=== PATIENT | male | born 1955 | race Caucasian/White ===

== ENCOUNTER 2022-11-24 09:08 | Emergency (ER) | payer MEDICARE, SELFPAY ==
[2022-11-24 09:11] VITALS: BP 117/66; PULSE 57; O2SAT 99
[2022-11-24 09:12] VITALS: BP 117/66; PULSE 60; RESP 18; TEMP 36.6; O2SAT 100; BMI 23.0
[2022-11-24 09:30] VITALS: PULSE 61; O2SAT 100
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
[2022-11-24 09:43] LABS: Add Manual Diff / Slide Review NO; Basophils Absolute Auto 0 /uL (0-100); Basophils Percent Auto 0.6 % (0-2); Eosinophils Absolute Auto 100 /uL (0-450); Eosinophils Percent Auto 1.7 % (2-4); Hemoglobin 14.2 g/dL (13.5-17.5); Lymphocytes Absolute Auto 1200 /uL (1100-4500); Lymphocytes Percent Auto 23.7 % (25-40); Mean Corpuscular HGB Conc 34.6 % (30-36); Mean Corpuscular Hemoglobin 32.1 PG (26-34); Mean Corpuscular Volume 92.7 fL (80-100); Monocytes Absolute Auto 400 /uL (0-900); Monocytes Percent Auto 8.2 % (3-14); Neutrophils Absolute Auto 3400 /uL (1500-7000); Neutrophils Percent Auto 65.8 % (50-75); Platelet Count 227 X10^3/uL (150-400); Red Blood Cell Count 4.42 X10^6/uL (4.5-5.9); Red Cell Distribution Width 13.1 % (11.6-14.8); White Blood Cell Count 5.1 X10^3/uL (4.5-11.0)
[2022-11-24 09:46] LABS: Prothrombin Time 11.4 SECONDS (10.1-12.7)
[2022-11-24 09:49] LABS: PTT Partial Thromboplastin Tim 24 SECONDS (26-36)
[2022-11-24] MEDS: cephALEXin 250 MG CAPSULE 500 MG PO (09:54)
[2022-11-24 10:00] VITALS: PULSE 63; O2SAT 99
[2022-11-24 10:23] VITALS: BP 122/76; PULSE 63; O2SAT 100
[2022-11-24 10:30] VITALS: PULSE 64; O2SAT 100
== END 2022-11-24 10:52 | disposition home or self-care (01) ==
PROVIDERS: Emergency Provider Emergency Medicine
DX: R04.0 Epistaxis (principal)
CPT/HCPCS: 30901; 85025; 85610; 85730; 99283

== ENCOUNTER 2022-11-25 11:37 | Emergency (ER) | payer MEDICARE, SELFPAY ==
[2022-11-25 11:39] VITALS: BP 137/90; PULSE 87; RESP 16; TEMP 36.6; O2SAT 98; BMI 23.0
--- NOTE | 2022-11-25 16:33 | ED_ITS ---
HPI - Recheck/Abnormal Lab/Rx <Rashmi Raymundo PA-C - Last Filed: 11/25/22 17:33> General Chief Complaint: Recheck/Abnormal Lab/Rx Stated Complaint: needs to have Rhino Rocket removed Time Seen by Provider: 11/25/22 14:52 Source: patient Mode of arrival: Ambulatory History of Present Illness HPI narrative: 67-year-old male presents with concern for needing rhino rocket removed. Patient is currently on a boat and has been traveling with his . Yesterday he had 2 nosebleeds 1 of which would not stop and came to the emergency department here. A rhino rocket was placed and he was advised to follow up with ENT which he has tried but they are not available until next week. He presents today for rhino rocket removal as they are planning to head out tomorrow from [place]. He has no history of nosebleeds that do not stop he has had occasional nosebleeds in the past but they have always stopped on their own within a reasonable time. He denies dizziness, lightheadedness or any other symptoms. Related Data Previous Rx's Medication Instructions Recorded cephalexin 500 mg capsule 500 mg PO TID #15 caps 11/24/22 Allergies Allergy/AdvReac Type Severity Reaction Status Date / Time No Known Drug Allergies Allergy Verified 11/25/22 11:44 Review of Systems <Rashmi Raymundo PA-C - Last Filed: 11/25/22 17:33> Review of Systems Narrative: See HPI Patient History <Rashmi Raymundo PA-C - Last Filed: 11/25/22 17:33> Social History Smoking Status: Never smoker Smoking Status: Never smoker alcohol intake frequency: a few times a month Substance Use Type: does not use Exam <Rashmi Raymundo PA-C - Last Filed: 11/25/22 17:33> Narrative Exam Narrative: GENERAL: 67 year old patient appears stated age. Well-developed patient, in mild distress. HEAD: Atraumatic. Normocephalic. EYES: Pupils equal round and reactive. Extraocular motions intact. No scleral icterus. No injection or drainage. ENT: Nose without bleeding, purulent drainage. There is a rhino rocket in place in the left Nare with balloon inflated. After removal of rhino rocket which was not notably bloody, initially no bleeding however within about 60 seconds patient has a steady stream of dark blood from his left nare Throat without erythema, tonsillar hypertrophy or exudate. On initial exam after rhino rocket removal and recurrent epistaxis there is some fresh bright red blood/medium red blood present in the posterior oropharynx however it is not dripping down or streaming down. Airway patent. On exam after administration of Afrin with nose clip for 15 minutes, patient has no continued epistaxis and visualization of the Joseph shows no ongoing bleeding, there is no bleeding ongoing in the posterior oropharynx, and patient does have a patent left naris in his able to breathe through it. NECK: Trachea midline. Non tender CARDIOVASCULAR: Regular rate and rhythm without murmurs, gallops, or rubs. RESPIRATORY: Clear to auscultation. Breath sounds equal bilaterally. No wheezes, rales, or rhonchi. EXTREMITIES: No edema or joint tenderness. NEURO: AOx3. SKIN: No rash or erythema of visible areas Initial Vital Signs Initial Vital Signs: Vital Signs Temperature 97.9 F 11/25/22 11:39 Pulse Rate 87 11/25/22 11:39 Respiratory Rate 16 11/25/22 11:39 Blood Pressure 137/90 11/25/22 11:39 Pulse Oximetry 98 11/25/22 11:39 Oxygen Delivery Method Room Air 11/25/22 11:39 <Gee Cates MD - Last Filed: 12/02/22 04:56> Initial Vital Signs Initial Vital Signs: Vital Signs Temperature 97.9 F 11/25/22 11:39 Pulse Rate 87 11/25/22 11:39 Respiratory Rate 16 11/25/22 11:39 Blood Pressure 137/90 11/25/22 11:39 Pulse Oximetry 98 11/25/22 11:39 Oxygen Delivery Method Room Air 11/25/22 11:39 Procedures <Rashmi Raymundo PA-C - Last Filed: 11/25/22 17:33> [facility] [place] Procedure Name of Procedure: Rhino rocket removal Side (if applicable): left Location: Left Nare Time out performed: No Technique/Description of procedure performed: After on taping the balloon from the cheek, a 10 cc syringe is used to to withdraw air from the rhino rocket, and rhino rocket is gently removed from the left naris without difficulty or resistance. There is initially no bleeding however within 60 seconds or slow a steady trickle of blood does emanate from the left nostril. Patient tolerated procedure: Well Complications: bleeding Course <Rashmi Raymundo PA-C - Last Filed: 11/25/22 17:33> Orders Ordered: Discontinued Medications Oxymetazoline HCl (Oxymetazoline Nasal Lester 15 Ml) 2 sprays NASAL NOW ONE Stop: 11/25/22 16:29 Vital Signs Vital signs: Vital Signs - 8 hr 11/25/22 11:39 Temperature 97.9 F Pulse Rate 87 Respiratory Rate 16 Blood Pressure 137/90 Pulse Oximetry 98 Oxygen Delivery Method Room Air <Gee Cates MD - Last Filed: 12/02/22 04:56> Orders Ordered: Discontinued Medications Oxymetazoline HCl (Oxymetazoline Nasal Lester 15 Ml) 2 sprays NASAL NOW ONE Stop: 11/25/22 16:29 Vital Signs Vital signs: Vital Signs - 8 hr 11/25/22 11:39 Temperature 97.9 F Pulse Rate 87 Respiratory Rate 16 Blood Pressure 137/90 Pulse Oximetry 98 Oxygen Delivery Method Room Air MDM - Recheck/Abnormal Lab/Rx <Rashmi Raymundo PA-C - Last Filed: 11/25/22 17:33> Differential Diagnosis Differential diagnosis: Likely other (Epistaxis, rhino rocket removal, persistent epistaxis) Treatment and disposition Shared decision making:: Shared decision-making was used in determining the plan of care and plan for outpatient care for this patient. MDM Narrative Medical decision making narrative: This is a generally healthy 67-year-old male presents with concern for needing rhino rocket removed was placed about 30 hours ago after a persistent nosebleed that would not stop. No history of similar. Patient is not on blood thinners. Today after rhino rocket removal patient does have recurrent epistaxis beginning about 60 seconds later, and does form a large clot after leaning forward and using a nose clip. Afrin 2 sprays are instilled after patient blows his nose and a nose clip is reapplied. On re-examination after this patient does not have any persistent epistaxis and no persistent bleeding in the posterior oropharynx. Counseled patient and his regarding the use of Afrin, versus seeking emergency department follow-up, plan for ENT follow-up. They are provided with the additional left over Afrin as well as nose clip. Return precautions provided, follow-up plan discussed all questions answered. Discharge Plan Departure Patient Disposition: Home Clinical Impression: Epistaxis, recurrent Activity Restrictions/Additional Instructions: Thank you for letting us be part of your care today in the emergency department. Unfortunately when we removed her rhino rocket you did have a recurrent nosebleed. We were able to get this stopped with Afrin and a nose clip. You can use this over the next 24-48 hours if you do have recurrent nosebleed however if you have persistent nosebleed that is not resolving with this or recurrent nosebleeds again and again despite this treatment you definitely do need to be seen again and I strongly recommend you follow-up with ENT as planned. Do not hesitate to present to the emergency department if you have recurrent persistent bleeding, dizziness lightheadedness or other symptoms of concern. There is no evidence of an emergent or life threatening illness at this time, but follow up with your doctor in 1-2 days is recommended nonetheless to continue to rule out serious underlying causes of your symptoms. Please call the office for an appointment. Please return to the Emergency Department for any worsening or persistent symptoms. Please take medications as directed. Prescriptions: No Action cephalexin 500 mg capsule 500 mg PO TID Qty: 15 0RF Referrals: Miskim,MD Mariely [Primary Care Provider] - Stand Alone Forms: Patient Portal/API <Gee Cates MD - Last Filed: 12/02/22 04:56> [facility] Att[facility]: I was immediately available in the department for consultation. ?This documentation has been reviewed and I agree with assessment and plan. Supervised by Gee Cates MD
== END 2022-11-25 17:42 | disposition home or self-care (01) ==
PROVIDERS: Emergency Provider Student in an Organized Health Care Education/Training Program
DX: Z48.00 Encounter for change or removal of nonsurgical wound dressing (principal); R04.0 Epistaxis
CPT/HCPCS: 99281; A9270